=== PATIENT | male | born 1995 | race Caucasian/White ===

== ENCOUNTER 2017-09-18 20:14 | Emergency (ER) | payer OTHER, MEDICAID ==
[2017-09-18] MEDS: ONDANSETRON (ODT) 4 MG TAB ODT (21:11)
[2017-09-18] MEDS: IBUPROFEN 600 MG TAB PO (21:11)
== END 2017-09-18 23:25 | disposition home or self-care (01) ==
LOC: FTE 20:14
DX: R11.2 Nausea with vomiting, unspecified (principal)
CPT/HCPCS: 99283; Z7502